=== PATIENT | female | born 1975 | race Caucasian/White ===

== ENCOUNTER 2016-03-31 13:56 | Emergency (ER) | payer OTHER ==
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
[2016-03-31 15:45] VITALS: BP 120/75; PULSE 88; RESP 15; TEMP 98.8; O2SAT 94
== END 2016-04-05 11:26 | disposition home or self-care (01) ==
PROC: 0HQ1XZZ Repair Face Skin, External Approach (ICD-10-PCS; principal; 2016-03-31)
DX: S01.81XA Laceration without foreign body of other part of head, initial encounter (principal); V19.9XXA Pedal cyclist (driver) (passenger) injured in unspecified traffic accident, initial encounter; Y92.410 Unspecified street and highway as the place of occurrence of the external cause; Y93.89 Activity, other specified